=== PATIENT | female | born 2000 | race Caucasian/White ===

== ENCOUNTER 2021-11-21 17:12 | Emergency (ER) | payer MEDICAID ==
[~2021-11-21] VITALS: Ht 162.6 cm; Wt 70.0 kg
[2021-11-21] MEDS ORDERED: ONDANSETRON 4MG ODT PO STA (18:19)
[2021-11-21] MEDS ORDERED: MAGNESIUM/ALUMINUM HYDROXIDE/SIMETHICONE 30ML UDC PO STA (18:19)
[2021-11-21] MEDS ORDERED: KETOROLAC 60MG/2ML VIAL IM ONE (18:30)
[2021-11-21] MEDS ORDERED: HYDROCODONE/ACETAMINOPHEN 5/325MG TABLET PO ONE (20:00)
[2021-11-21 20:09] LABS: BASOPHILS % 0.6 % (0.0-2.0); EOSINOPHILS % 0.5 % (0.0-5.0); HEMATOCRIT. 42.2 % (36.0-48.0); HEMOGLOBIN. 14.2 g/dL (12.0-16.0); MEAN CORPUSCULAR HEMOGLOBIN 29.8 pg (28.0-32.0); MEAN CORPUSCULAR VOLUME 88.5 fL (81.0-99.0); MEAN PLATELET VOLUME 11.7 fl (7.4-10.4); MONOCYTES % 8.3 % (2.0-8.0); NEUTROPHILS % 43.6 % (40.0-76.0); PLATELET 136 x1000/uL (130-400); RED BLOOD CELL COUNT 4.77 mill/uL (4.2-5.4); RED CELL DISTRIBUTION WIDTH 13.2 % (11.6-14.6)
[2021-11-21 20:13] LABS: CHLORIDE 107 mEq/L (98-107)
[2021-11-21 20:16] LABS: HCG SCREEN NEGATIVE
[2021-11-21] MEDS ORDERED: ONDA4TAB5 MT (20:29)
[2021-11-21] MEDS ORDERED: IBUP-2029 MT (20:29)
[2021-11-21 20:52] VITALS: BP 126/74
== END 2021-11-21 20:53 | disposition home or self-care (01) ==
LOC: ER 17:27
DX: R10.9 Unspecified abdominal pain (principal); R11.2 Nausea with vomiting, unspecified; J02.9 Acute pharyngitis, unspecified; Z20.822 Contact with and (suspected) exposure to COVID-19
CPT/HCPCS: 36415; 71045; 80053; 83690; 84703; 85025; 87426; 96372; 99284; J1885; Q0162